=== PATIENT | female | born 1935 | race Caucasian/White ===

== ENCOUNTER 2019-02-27 19:13 | Emergency (ER) | payer OTHER ==
[2019-02-27 20:25] VITALS: BP 147/53
--- NOTE | 2019-02-27 20:36 | UC ---
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 " neighbor took it out. no rash. no fever. no arthralgias. thinks it may have been there for a few days. - History of Current Complaint Chief Complaint: UCSkin Time Seen by Provider: 02/27/19 20:26 Stated Complaint: TICK BITE Pain Intensity: 0 - Allergy/Home Medications Allergies/Adverse Reactions: Allergies Allergy/AdvReac Type Severity Reaction Status Date / Time erythromycin base Allergy See Comment Verified 02/27/19 20:20 PMH/Surg Hx/FS Hx/Imm Hx Previously Healthy: Yes - Surgical History Surgical History: Yes Surgery Procedure, Year, and Place: Tonsils. Cataracts - Family History Known Family History: Positive: Hypertension - Social History Alcohol Use: None Substance Use Type: None Smoking Status (MU): Never Smoked Tobacco Review of Systems All Other Systems Reviewed And Are Negative: Yes Constitutional: Positive: Negative Skin: Positive: Other - see above Eyes: Positive: Negative ENT: Positive: Negative Respiratory: Positive: Negative Cardiovascular: Positive: Negative Gastrointestinal: Positive: Negative Motor: Positive: Negative Neurovascular: Positive: Negative Musculoskeletal: Positive: Negative Neurological: Positive: Negative Psychological: Positive: Negative Is Patient Immunocompromised?: No Physical Exam Triage Information Reviewed: Yes Appearance: Well-Appearing, No Pain Distress, Well-Nourished - very pleasant Vital Signs: Initial Vital Signs Temp 98.1 F 02/27/19 20:21 Pulse 95 02/27/19 20:21 Resp 16 02/27/19 20:21 BP 147/53 02/27/19 20:21 Pulse Ox 96 02/27/19 20:21 Vital Signs Reviewed: Yes Eye Exam: Normal ENT Exam: Normal Neck exam: Normal Respiratory Exam: Normal Cardiovascular Exam: Normal Musculoskeletal Exam: Normal Neurological Exam: Normal Psychological Exam: Normal Skin: Positive: Other - posterior neck w/ small area of tic bite, may still have small remnant of tic. no bull's eye rash. Course/Dx - Course Course Of Treatment: tic mostly removed. may have been more than 48 hrs. will treat w/ doxy 200mgs prophylactic dose. -f/u w/ sx of lyme - Differential Diagnoses - Skin Complaint Differential Diagnoses: Tick Born Illness - Diagnoses Provider Diagnosis: Tick bite Discharge - Sign-Out/Discharge Documenting (check all that apply): Patient Departure All imaging exams completed and their final reports reviewed: No Studies - Discharge Plan Condition: Stable Disposition: HOME Prescriptions: Doxycycline Monohydrate 200 mg PO ONCE 1 Days #2 cap Patient Education Materials: Tick Bite (ED) Referrals: [place] WHITAKER,Tyler Burleson [Primary Care Provider] - If Needed Additional Instructions: Avoid the sun for 1-2 days after taking the doxyclcine. - Billing Disposition and Condition Condition: STABLE Disposition: Home
== END 2019-02-27 20:49 | disposition home or self-care (01) ==
LOC: UCCORT 19:13
DX: S10.96XA Insect bite of unspecified part of neck, initial encounter (principal); W57.XXXA Bitten or stung by nonvenomous insect and other nonvenomous arthropods, initial encounter
CPT/HCPCS: 99202; G0463